=== PATIENT | female | born 1995 | race African-American/Black ===

== ENCOUNTER 2016-09-16 00:08 | Inpatient (IN) ==
[2016-09-16] MEDS ORDERED: SODIUM CHLORIDE 0.9% INJ SCH (00:15)
[2016-09-16] MEDS ORDERED: REGLAN PO ONE (00:15)
[2016-09-16] MEDS ORDERED: STADOL IV PRN (00:15)
[2016-09-16] MEDS ORDERED: PEPCID IV PRN (00:15)
[2016-09-16] MEDS ORDERED: PEPCID PO PRN (00:15)
[2016-09-16] MEDS ORDERED: KEFZOL 1 GM/D5W 1 GM/50 ML IVPB IV PRN (00:15)
[2016-09-16] MEDS ORDERED: PEPCID PO ONE (00:15)
[2016-09-16] MEDS ORDERED: ZOFRAN IV PRN (00:15)
[2016-09-16] MEDS ORDERED: TYLENOL PO PRN (00:15)
[2016-09-16] MEDS ORDERED: AMPICILLIN 2 GM/NS 2 GM/100 ML IVPB IV ONE (01:30)
[2016-09-16] MEDS: LR 1,000 ML IV SCH ×2 (01:33→09:30)
[2016-09-16 02:04] LABS: URINE SOURCE VOIDED
[2016-09-16 02:17] LABS: BILIRUBIN URINE NEGATIVE (NEGATIVE); BLOOD URINE 1+ (NEGATIVE); CLARITY SL. CLOUDY (CLEAR); COLOR YELLOW; GLUCOSE URINE NEGATIVE (NEGATIVE); LEUKOCYTES URINE 2+ (NEGATIVE); NITRITE URINE NEGATIVE (NEGATIVE); PROTEIN URINE NEGATIVE (NEGATIVE); SP GRAVITY URINE 1.015; UROBILINOGEN URINE NORMAL
[2016-09-16 02:18] LABS: BASO% 0.1 % (0.0-0.8); EOS# 0.08 X1000 (0.0-0.7); EOS% 0.9 % (0.0-10.0); HEMATOCRIT 30.9 % (37.0-47.0); IMM GRAN# 0.06 X1000 (0.0-0.04); IMM GRAN% 0.7 % (0.0-0.5); LYMPH# 2.11 X1000 (1.2-3.4); LYMPH% 24.5 % (20.5-51.1); MANUAL DIFF NEEDED? YES; MCH 23.1 PG (27-31); MCHC 32.4 g/dL (33-37); MCV 71.4 FL (81-99); MONO# 0.69 X1000 (0.11-0.59); NEUT% 65.8 % (42.2-75.2); PLT 200 X1000 (130-400); RBC 4.33 XMIL (4.2-5.4)
[2016-09-16 02:50] LABS: EOS 2 % (1-10); LYMPHS 20 % (21-51); MONO 6 % (1-9)
[2016-09-16 02:53] LABS: HYPOCHROM OCCASIONAL; POLYCHROM OCCASIONAL
[2016-09-16] MEDS ORDERED: FENTANYL-BUPIV-NS 2 MCG-0.1% 200 ML EPIDURAL SCH (04:00)
[2016-09-16] MEDS: AMPICILLIN 1 GM/NS 1 GM/50 ML IVPB IV SCH ×2 (05:42→09:43)
[2016-09-16] MEDS ORDERED: PITOCIN 30 UNITS/LR 30 UNITS/500 ML IV.SOLN IV SCH (06:30)
[2016-09-16] MEDS ORDERED: MARCAINE 0.25% PF INJ ONE (09:00)
[2016-09-16] MEDS ORDERED: PITOCIN 20 UNITS/LR 20 UNITS/1,000 ML IV.SOLN ONE (12:57)
[2016-09-16] MEDS ORDERED: AMBIEN PO PRN (13:41)
[2016-09-16] MEDS ORDERED: MINERAL OIL PO PRN (13:41)
[2016-09-16] MEDS ORDERED: HYDROXYZINE PO PRN (13:41)
[2016-09-16] MEDS ORDERED: PITOCIN 30 UNITS/LR 30 UNITS/500 ML IV.SOLN IV ONE (13:41)
[2016-09-16] MEDS ORDERED: BOOSTRIX VACCINE IM ONE (13:41)
[2016-09-16] MEDS ORDERED: HYDROXYZINE IM PRN (13:41)
[2016-09-16] MEDS ORDERED: XYLOCAINE-MPF 1% INJ PRN (13:41)
[2016-09-16] MEDS ORDERED: BENADRYL PO PRN (13:41)
[2016-09-16] MEDS ORDERED: M-M-R II VACCINE SUBQ ONE (13:41)
[2016-09-16] MEDS ORDERED: CYTOTEC PO PRN (13:41)
[2016-09-16] MEDS ORDERED: NORCO-10 PO PRN (13:41)
[2016-09-16] MEDS ORDERED: PERI MEDS (DERMOPLAST/NUPERCAINAL/TUCKS) MISC PRN (13:41)
[2016-09-16] MEDS ORDERED: BENADRYL IV PRN (13:41)
[2016-09-16] MEDS ORDERED: PITOCIN 20 UNITS/LR 20 UNITS/1,000 ML IV.SOLN IV SCH (13:41)
[2016-09-16] MEDS ORDERED: PITOCIN IM PRN (13:41)
--- NOTE | 2016-09-16 13:44 | OPERATIVE NOTE ---
PROCEDURE DATE: 09/16/2016 DELIVERY NOTE: The patient underwent sterile controlled spontaneous vaginal delivery of a viable female infant, weighing 6 pounds 9 ounces with Apgars of 9 and 10. Loose nuchal x1 reduced at the perineum. No dystocia. Cord doubly clamped and cut. handed off. Cord blood obtained. Placenta delivered spontaneously and intact. Uterus firm with Pitocin and massage. Uterus, cervix, and vagina explored no lacerations noted. ESTIMATED BLOOD LOSS: 200 mL. COMPLICATIONS: None. cc: Kristen Pantoja MD [email or web address]
[2016-09-16] MEDS: MOTRIN PO PRN (14:01)
[2016-09-16] MEDS: NORCO-5 PO PRN ×2 (14:01→21:08)
[2016-09-16] MEDS: PERICOLACE PO SCH (21:08)
[2016-09-17] MEDS: MOTRIN PO PRN ×3 (01:01→17:00)
[2016-09-17 06:33] LABS: HEMATOCRIT 30.2 % (37.0-47.0); HEMOGLOBIN 9.4 g/dL (12.0-16.0); MCH 22.5 PG (27-31); MCHC 31.1 g/dL (33-37); MCV 72.2 FL (81-99); PLT 178 X1000 (130-400); RBC 4.18 XMIL (4.2-5.4)
--- NOTE | 2016-09-17 08:52 | PROGRESS NOTE ---
DATE: 09/17/2016 SUBJECTIVE: She is day 1. Ms. Slater has no complaints. She is voiding. She is tolerating p.o. She is ambulating around. She is happy. OBJECTIVE: Vital Signs: Blood pressure 122/75, pulse 73, respiration 18, temperature 98.1 degrees. She is alert and cooperative. She does not appear to be any distress. PERTINENT EXAMINATION: Her abdomen is soft, slightly distended. Uterus is firm but nontender. No cyanosis, clubbing, edema in her extremities. Hemoglobin and hematocrit 9/30. ASSESSMENT: day 1 from vaginal delivery. PLAN: Routine care. Expect discharge in the morning. cc: MD rKisten Albert MD
[2016-09-17] MEDS: NORCO-5 PO PRN ×2 (09:19→17:00)
[2016-09-17] MEDS: PERICOLACE PO SCH (20:21)
[2016-09-18] MEDS: MOTRIN PO PRN ×2 (01:08→08:52)
[2016-09-18 07:56] VITALS: BP 115/63
[2016-09-18] MEDS: NORCO-5 PO PRN (08:52)
== END 2016-09-18 12:00 | disposition home or self-care (01) ==
LOC: P.LD 00:08 → P.WC 15:26
PROVIDERS: ADMIT Obstetrics & Gynecology; ATTEND Obstetrics & Gynecology